=== PATIENT | male | born 1970 | race Caucasian/White ===

== ENCOUNTER → 2021-03-06 17:52 | Outpatient (CLI) | payer BC, SELFPAY ==
--- NOTE | ~2021-03-06 | XR_ITS ---
XR shoulder RT min 2V 03/06/2021 18:08 Indication: Right shoulder pain after fall Procedure: 4 views right shoulder Comparison: No prior studies for comparison. Findings: No fracture, subluxation or dislocation. There is mild polyarticular osteoarthritis of the right shoulder. No significant soft tissue abnormality. Lung parenchyma is unremarkable. Impression: 1: Mild polyarticular osteoarthritis of the right shoulder. Reviewed, dictated and finalized at location A. Impression: 1: Mild polyarticular osteoarthritis of the right shoulder.
== END ==
PROVIDERS: PCP Family Medicine; Visit Provider Family Medicine
DX: M19.011 Primary osteoarthritis, right shoulder (principal)
CPT/HCPCS: 73030

== ENCOUNTER 2021-05-02 11:11 | Outpatient (RCR) | payer BC, SELFPAY ==
[2021-05-02] MEDS: diphenhydrAMINE HCl CAP 25 MG CAPSULE PO (12:02)
[2021-05-02] MEDS: ACETAMINOPHEN 325 MG TABLET 650 MG PO (12:02)
[2021-05-02] MEDS: FAMOTIDINE 20 MG TABLET PO (12:03)
[2021-05-02 12:24] VITALS: BP 118/72; PULSE 81; RESP 20; TEMP 36.7; O2SAT 96
[2021-05-02 13:41] VITALS: BP 125/73
== END 2021-05-02 16:30 | disposition home or self-care (01) ==
LOC: AMCINF 11:11
PROVIDERS: PCP Family Medicine; Referring Provider Family Medicine; Visit Provider Internal Medicine Hematology & Oncology
DX: Z23 Encounter for immunization (principal); U07.1 COVID-19
CPT/HCPCS: A9270; J7050; M0243

== ENCOUNTER 2023-10-03 09:05 | Outpatient (CLI) | payer OTHER, SELFPAY ==
--- NOTE | 2023-10-28 13:44 | WPDSLEEPSTUD ---
Sleep Study Date of Study: 10/03/23 Ordering Provider: Miles Zarate MD Interpreting Physician: Miracle Snyder DO Sleep Study Type: Split Polysomnogram Height: 1.78 m Weight: 117.027 kg Body Mass Index: 37.0 Neck Circumference (inches): 20 [place]: 3 Reason for Sleep Study Previously diagnosed with KAYA and has been on BPAP for the past 20 years. His current settings of 14/6 cm H2O. His current machine started displaying error codes. Sleep History The patient is a 53-year-old male with anxiety, depression, hypogonadism, inflammatory arthritis, obesity, history of tobacco use and KAYA on BPAP that had a sleep study ordered by his primary care to get new PAP equipment. the patient denies awakening from sleep short of breath. He denies awakening at night with heartburn, belching or cough. He denies snoring. He occasionally has trouble sleeping when he has a cold. He denies waking up gasping for air throughout the night. He denies having breathing problems at night observed by himself or others. He frequently sweats excessively at night. He denies having heart palpitations or irregular heartbeats during the night. He denies falling asleep during the day. He rarely falls asleep while driving. He denies sleep paralysis, cataplexy and hypnagogic / hypnopompic hallucinations. He denies having trouble at school or work due to sleepiness. He denies feeling afraid of going to sleep. He denies having nightmares. He occasionally remembers his dreams. He occasionally has thoughts racing through his mind. He rarely feels sad or depressed. He rarely has anxiety. He rarely has muscular tension. He frequently notices parts of his body jerk. He frequently kicks during the night. He rarely has crawling and aching feelings in his legs and rarely has leg pain during the night. He denies grinding his teeth during sleep and denies awakening with morning jaw pain. He is rarely bothered by pain during the day but never awakened by pain during the night. He rarely wakes up feeling stiff in morning. He rarely wakes up with sore or achy muscles. He rarely wakes up with pain in the neck, spine and other joints. He goes to bed at 10:00 p.m. on weekdays and between 11:00 p.m. to midnight on the weekends. He can fall asleep immediately. He rarely wakes up throughout the night and if he does he is able to fall back asleep within seconds. He wakes up at 6:00 a.m. on weekdays and 8:00 a.m. on the weekends. He typically gets 7 8 hours of sleep per night. He will stay in bed for 15 minutes after waking up in the morning. He currently lives with his and 2 children. He will consume caffeinated beverages within 2 hours of bedtime. He denies engaging in physical exercise before bedtime. He denies reading and watching television before falling asleep. He denies taking naps in the afternoon or the evening. He consumes 3 cups of coffee per day. He quit smoking cigarettes 23 years ago. He denies alcohol and recreational drug use. [facility] Past Medical History Medical History Acute non-recurrent maxillary sinusitis Acute pain of right shoulder due to trauma Anxiety BMI 36.0-36.9,adult BMI 37.0-37.9, adult Chronic depression Colon cancer screening Normal colonoscopy at age 49 with recheck in 10 years. Contact dermatitis and eczema due to plant Counseling on health promotion and disease prevention Counseling on health promotion and disease prevention COVID-19 (04/30/21) Encounter for medication management Encounter for medication management Encounter for prostate cancer screening PSA 0.4 on 02/28/2021. PSA 0.45 on 08/30/2022. Fibromyalgia (~2014) History of malignant melanoma Hypogonadism male Total testosterone 353 with free testosterone 52.6 on 02/28/2021. Testosterone 414 with free testosterone 61.9 on 08/30/2022. Inflammatory arthritis (~2014) Insomnia Kidney stone Myalgia Obesity
[2023-10-28 13:55] VITALS: BMI 37.0
== END 2023-10-04 07:33 | disposition home or self-care (01) ==
LOC: ANHCSM 09:06
PROVIDERS: PCP Family Medicine; Visit Provider Family Medicine
DX: G47.33 Obstructive sleep apnea (adult) (pediatric) (principal); G47.61 Periodic limb movement disorder
CPT/HCPCS: 95811